=== PATIENT | female | born 1995 | race Caucasian/White ===

== ENCOUNTER 2017-11-22 15:00 | Emergency (ER) | END 2017-11-22 17:45 | disposition home or self-care (01) ==

== ENCOUNTER 2018-01-05 17:25 | Emergency (ER) | END 2018-01-05 21:57 | disposition home or self-care (01) ==

== ENCOUNTER 2018-09-23 10:30 | Emergency (ER) | END 2018-09-23 13:50 | disposition home or self-care (01) ==

== ENCOUNTER 2018-09-23 16:40 | Emergency (ER) | END 2018-09-23 21:08 | disposition left against medical advice (07) ==